=== PATIENT | male | born 1995 | race Caucasian/White ===

== ENCOUNTER 2016-03-28 07:07 | Emergency (ER) | payer BC ==
[2016-03-28 07:12] VITALS: RESP 16
--- NOTE | 2016-03-28 07:16 | EDPHY ---
H & P Time Seen by Provider: 03/28/16 07:15 HPI/ROS: CHIEF COMPLAINT: Vomiting and fever HISTORY OF PRESENT ILLNESS: 21-year-old man with out last night with friends and had about 6 beers. He also 8 a frozen chicken which was near its expiration date which he got from his father last Thursday. He woke up at 3:00 a.m. today with multiple episodes of severe nausea and vomiting. No blood or coffee grounds in the emesis. Not associated with abdominal pain. Symptoms much worse with trying to eat or drink anything any can't keep water food down. No abdominal pain and no diarrhea. REVIEW OF SYSTEMS: Eye: no change in vision ENT: Mild sore throat after multiple episodes of vomiting. Cardiac: no chest pain or syncope Pulmonary: no cough or SOB Abdomen: HPI Musculoskeletal: no back pain Skin: no rash Neuro: Mild headache started after symptoms. Constitutional: Feels feverish. : no urinary symptoms. No testicular symptoms. A comprehensive 10 point review of systems is otherwise negative aside from elements mentioned in the history of present illness. PAST MEDICAL HISTORY: Negative except for knee surgery Social history: Student at [employer] General Appearance: Alert and conversant, cooperative. Eyes: No scleral icterus. ENT, Mouth: Dry mucous membranes Respiratory: Normal respiratory effort, breath sounds equal, lungs are clear to auscultation. Cardiovascular: Regular rate and rhythm. Gastrointestinal: Abdomen is soft and non tender. Normal bowel sounds, not distended, no rebound or guarding. Neurological: Alert and oriented x3. Normally conversant. Face symmetric, normal movement and sensation in all extremities. Skin: Warm and dry, no rashes. Musculoskeletal: No peripheral edema and no joint swelling. Psychiatric: Not agitated. Emergency Department course/MDM: Patient appears clinically dehydrated with dry mucous membranes. Plan for IV normal saline 2 L and Zofran 4 mg IV. Likely viral or food related. Normal abdominal exam. Does not have symptoms to suggest new onset diabetes. Discussed with him I think that labs are not indicated unless he fails to improve with therapy. 854: Abdomen soft nontender, taking orals. Given appendicitis warnings. Nonsurgical examination at this time. Smoking Status: Never smoked Constitutional: Initial Vital Signs Temperature (C) 36.7 C 03/28/16 07:10 Heart Rate 75 03/28/16 07:10 Respiratory Rate 16 03/28/16 07:10 Blood Pressure 126/73 H 03/28/16 07:10 O2 Sat (%) 96 03/28/16 07:10 O2 Delivery Mode Room Air Allergies/Adverse Reactions: No Known Allergies Allergy (Unverified 03/28/16 07:09) Home Medications: Medication Instructions Recorded NK [No Known Home Meds] 03/28/16 Medical Decision Making Differential Diagnosis: Differential diagnosis considered for nausea and vomiting including but not limited to gastroenteritis, gastritis, appendicitis, alcohol, metabolic - Data Points Medications Given: Discontinued Medications Sodium Chloride (Ns) 1,000 mls @ 0 mls/hr IV ONCE ONE PRN Reason: Wide Open Stop: 03/28/16 07:24 Last Admin: 03/28/16 07:31 Dose: 1,000 mls Sodium Chloride (Ns) 1,000 mls @ 0 mls/hr IV ONCE ONE PRN Reason: Wide Open Stop: 03/28/16 07:24 Last Admin: 03/28/16 08:05 Dose: 1,000 mls Ondansetron HCl (Zofran) 4 mg IVP EDNOW ONE Stop: 03/28/16 07:24 Last Admin: 03/28/16 07:31 Dose: 4 mg Departure - Departure Disposition: Home, Routine, Self-Care Clinical Impression: Dehydration Nausea & vomiting Qualifiers: Vomiting type: unspecified Vomiting Intractability: non-intractable Qualifier Code: (R11.2) Nausea with vomiting, unspecified Condition: Good Instructions: Acute Nausea and Vomiting (ED) Additional Instructions: You need to return to the emergency department immediately if you develop worsening or severe pain, fever, vomiting or you are not completely better in 8- 12 hours. Referrals: YAIR DAVIS [Primary Care Provider] - As per Instructions
[2016-03-28] MEDS ORDERED: ONDANSETRON 4 MG/2 ML VIAL IVP ONE (07:23)
[2016-03-28] MEDS ORDERED: NS 1,000 ML IV ONE ×2 (07:23)
[2016-03-28 09:21] VITALS: BP 127/66; PULSE 95; TEMP 99.1; O2SAT 93
== END 2016-03-28 09:19 | disposition home or self-care (01) ==
DX: R11.2 Nausea with vomiting, unspecified (principal); E86.0 Dehydration
CPT/HCPCS: 96374; J2405

== ENCOUNTER 2018-06-16 23:09 | Emergency (ER) | payer BC ==
[2018-06-16 23:19] VITALS: BP 128/84
--- NOTE | 2018-06-17 00:03 | EDPHY ---
H & P Stated Complaint: LEFT TESTICLE PAIN NOW WITH SWELLING SINCE LAST THURSDAY Time Seen by Provider: 06/16/18 23:20 HPI/ROS: HPI The patient presents with left-sided testicular pain and swelling which started slowly about 4 days ago and has not resolved. He awoke with pain of his left testicle, it is worse when he changes position. He does not have any direct trauma to the testicle. He notices some radiation of the pain into his inguinal region. He does not have any difficulty urinating or discharge. He has 1 prior similar episode which improved when he turned his testicle. REVIEW OF SYSTEMS 10 systems were reviewed and negative with the exception of the elements mentioned in the history of present illness. PMHx: Healthy, no prior history of STD or UTI Soc Hx: College student PHYSICAL General Appearance: Alert, no distress Eyes: Pupils equal and round no pallor or injection ENT, Mouth: Mucous membranes moist Respiratory: There are no retractions, lungs are clear to auscultation Cardiovascular: Regular rate and rhythm : Cremasteric reflex present bilaterally, no inguinal lymphadenopathy, testicles are nontender bilaterally Gastrointestinal: Abdomen is soft and non-tender, no masses, bowel sounds normal Neurological: A&O, moves all extremities Skin: Warm and dry, no rashes Musculoskeletal: Neck is supple non tender Extremities: symmetrical, full range of motion Psychiatric: Patient is oriented X 3, there is no agitation Source: Patient Exam Limitations: No limitations - Personal History Current Tetanus/Diphtheria Vaccine: Yes Current Tetanus Diphtheria and Acellular Pertussis (TDAP): Yes - Medical/Surgical History Hx Asthma: No Hx Chronic Respiratory Disease: No Hx Diabetes: No Hx Cardiac Disease: No Hx Renal Disease: No Hx Cirrhosis: No Hx Alcoholism: No Hx HIV/AIDS: No Hx Splenectomy or Spleen Trauma: No Other PMH: l knee surgery, - Social History Smoking Status: Never smoked Constitutional: Initial Vital Signs Temperature (C) 36.7 C 06/16/18 23:16 Heart Rate 51 L 06/16/18 23:16 Respiratory Rate 18 06/16/18 23:16 Blood Pressure 128/84 H 06/16/18 23:16 O2 Sat (%) 98 06/16/18 23:16 O2 Delivery Mode Room Air Allergies/Adverse Reactions: No Known Allergies Allergy (Unverified 06/16/18 23:19) Home Medications: Medication Instructions Recorded NK [No Known Home Meds] 03/28/16 Medical Decision Making - Diagnostics Imaging Results: Ultrasound testicle demonstrates tiny bilateral hydroceles are seen with thickening and increased vascularity in the left spermatic cord, interpreted by direct Radiology Imaging: I viewed and interpreted images myself Differential Diagnosis: 23-year-old male with atraumatic left-sided testicular pain and edema. Plan for ultrasound, UA. Differential diagnosis includes testicular torsion, epididymitis, hydrocele, varicocele. Patient's UA was normal. His ultrasound demonstrated increased vascularity of the left testis and spermatic cord. His pain actually improved before the ultrasound and my exam. It is unclear if he has testicular torsion with detorsion spontaneously, verses early orchitis. Given that he is asymptomatic now. Will plan for close Urology follow-up. I have given him information for Dr. Allan and have advised him to call tomorrow morning to arrange for follow-up appointment. We discussed strict return precautions. - Data Points Laboratory Results: 06/17/18 00:01 Urine Color PALE YELLOW Urine Appearance CLEAR Urine pH 6.0 (5.0-7.5) Ur Specific [place] 1.012 (1.002-1.030) Urine Protein NEGATIVE (NEGATIVE) Urine Ketones NEGATIVE (NEGATIVE) Urine Blood NEGATIVE (NEGATIVE) Urine Nitrate NEGATIVE (NEGATIVE) Urine Bilirubin NEGATIVE (NEGATIVE) Urine Urobilinogen NEGATIVE EU EU (0.2-1.0) Ur Leukocyte Esterase NEGATIVE (NEGATIVE) Urine Glucose NEGATIVE (NEGATIVE) Departure - Departure Disposition: Home, Routine, Self-Care Clinical Impression: Left testicular pain Condition: Good Instructions: Testicle Pain (ED) Additional Instructions: The cause of your pain is not entirely clear. I would like for you to call the urologist tomorrow to arrange for a follow-up appointment. Please return to the emergency department if your worse in any way. It is okay to take ibuprofen 400 mg or acetaminophen 650 mg every 6 hr as needed for any pain. Referrals: Desmond Allan MD [Medical Doctor] - As per Instructions
== END 2018-06-17 01:00 | disposition home or self-care (01) ==
DX: N50.812 Left testicular pain (principal); N43.3 Hydrocele, unspecified